=== PATIENT | female | born 1990 | race Caucasian/White ===

== ENCOUNTER 2018-02-15 12:54 | Emergency (ER) | payer OTHER ==
[2018-02-15] MEDS ORDERED: ONDANSETRON (ODT) 4 MG TAB ODT (16:22)
[2018-02-15] MEDS: ONDANSETRON (ODT) 4 MG TAB ODT (16:48)
== END 2018-02-15 16:31 | disposition home or self-care (01) ==
LOC: FTE 16:31
DX: R10.2 Pelvic and perineal pain (principal); F17.210 Nicotine dependence, cigarettes, uncomplicated
CPT/HCPCS: 76856; 84703; 99284-25